=== PATIENT | male | born 1955 | race Caucasian/White ===

== ENCOUNTER → 2016-06-17 | Outpatient (CLI) | payer OTHER ==
[~2016-06-17] MED LIST: ALBUTEROL0.63 MG/3 IH; ATARAX-DPS25 MG PO; BACTRIM DS DPS1 TAB PO; CEPHALEXIN500 MG PO; CHANTIX1 MG PO; DIABETA5 MG PO; GLUCOPHAGE-DPS500 MG PO; K-TAB ER10 MEQ PO; LASIX80 MG PO; NORCO 5-325 TA1 EACH PO; PANTOPRAZOLE SO20 MG PO; PRILOSEC20 MG PO; SINEMET 25-2501 EACH PO; ZYRTEC10 MG PO
--- NOTE | ~2016-06-17 | ECH ---
Transthoracic Echocardiography Report (TTE) Demographics Patient Name PAOLA HYATT Date of Study 06/17/2016 Patient Number [id number] Visit Number [id number] Date of 1955 Room Number Accession Number [id number] Gender Male Age 61 year(s) Referring Geovani Finnegan MD Piecer Up [address] [facility] Physician Physician Interpreting Lisa Nice Zigzag Topstitcher Physician MD Supervising Ordering Physician Geovani Finnegan MD, MD/P Nurse Stress Director Of Corporate Strategy Conclusions Summary Technically good exam. The estimated left ventricular ejection fraction is 60-65%. The right atrium is mildly dilated. No significant valvular abnormalities. Procedure Type of Study TTE procedure:Echo Complete SF. Procedure Date Date: 06/17/2016 Start: 09:17 AM Technical Quality: Good visualization Indications:Bilateral lower extremity edema and Hypertension. Additional Indications:Fluid retention Appropriate Use Criteria: 9 Height: 66 inches Weight: 258 pounds BSA: 2.23 m Rhythm: NSR HR: 72 bpm BP: 120/68 mmHg M-Mode/2D Measurements LV Diastolic Dimension: 5.6 cm LV Systolic Dimension: 3.3 cm LV Septum Diastolic: 0.7 cm LV PW Diastolic: 0.8 cm AO Root Dimension: 2.7 cm Cardiac Output: 0.07 l/min LA Dimension: 3.9 cm Cardiac Index: 0.03 l/min*m RV Diastolic Dimension: 3.5 cm LA volume index: 24 ml/m LVOT: 2 cm LVOT VTI: 0.3 cm RV Base: 4 cm LV Stroke volume: 0.94 ml RV Mid: 2.6 cm LV Stroke volume index: 0.42 ml/m TAPSE: 2.8 cm TDI-S': 15 cm/s Doppler Measurements AV Peak Velocity: 1.9 m/s MV Peak E-Wave: 1 m/s AV Peak Gradient: 14.44 mmHg MV Peak A-Wave: 0.8 m/s AV Mean Gradient: 6.9 mmHg MV E/A Ratio: 1.25 LVOT Peak Velocity: 1.3 m/s MV P1/2t: 95 msec AV Area (Continuity):2.77 cm MV Deceleration Time: 329 msec TR Velocity:2.4 m/s MV Area (PHT): 2.32 cm TR Gradient:23.04 mmHg PV Peak Velocity: 1.5 m/s Estimated RAP:3 mmHg PV Peak Gradient: 9 mmHg Estimated RVSP: 26 mmHg Estimated PASP: 26.04 mmHg E' Septal Velocity: 0.1 m/s A' Septal Velocity: 0.9 m/s E' Lateral Velocity: 0.15 m/s A' Lateral Velocity: 0.9 m/s MV E/E' Ratio: 6.6 RA Area: 20 cm Findings Left Ventricle Normal left ventricle size and function. Diastolic assessment reveals normal relaxation. Right Ventricle Normal right ventricle structure and function. Left Atrium Normal left atrial size. Right Atrium The right atrium is mildly dilated. Mitral Valve Normal mitral valve structure and function. Mild mitral regurgitation by color Doppler. Aortic Valve Normal aortic valve structure and function. Tricuspid Valve Normal tricuspid valve structure and function. Trivial tricuspid regurgitation by color Doppler. Normal pulmonary pressures. Pulmonic Valve Normal pulmonic valve structure and function. Trivial pulmonic valve regurgitation by color Doppler. Pericardial Effusion No evidence of pericardial effusion. Miscellaneous Visualized portions of the aortic root and ascending aorta appear normal in size. Pleural Effusion No evidence of pleural effusion. Contractility Score LV regional wall motion:(0-Non visualized 1-Normal 2-Hypokinesis 3-Akinesis 4-Dyskinesis 5-Aneurysm) Signature
== END | disposition home or self-care (01) ==
LOC: RAD.S 05-24 14:30
DX: K74.60 Unspecified cirrhosis of liver (principal); M81.0 Age-related osteoporosis without current pathological fracture; M85.862 Other specified disorders of bone density and structure, left lower leg

== ENCOUNTER 2016-06-25 07:20 | Day surgery (SDC) | payer OTHER ==
[~2016-06-25] VITALS: Ht 167.6 cm; Wt 119.2 kg
--- NOTE | 2016-06-30 10:45 | OR ---
ADMIT: 06/25/2016 RM/LOC: [facility] MR#: [id number] [address] [id number] EDMAR PAOLA DARNELL [address] [place] [id number] Operative/Delivery Room Report SEX: M AGE: 61 : 1955 SURGERY DATE: 06/25/2016 SURGEON: Manuel Park MD PREOPERATIVE DIAGNOSES: History of colon polyps as well as history of gastritis, question esophageal varices from his liver disease. POSTOPERATIVE DIAGNOSES: 1. No evidence of esophageal varices. Normal-appearing upper endoscopy. 2. Normal colonoscopy. PROCEDURES PERFORMED: 1. EGD with biopsies. 2. Colonoscopy. ANESTHESIA: Sedation. ESTIMATED BLOOD LOSS: None. DESCRIPTION OF PROCEDURE: After appropriate informed consent was obtained, the patient was brought to the endoscopy suite. IV sedation was provided. A well-lubricated endoscope was introduced and passed down the esophagus. The esophageal mucosa appeared normal. There was no evidence of any varices, no esophagitis. Really not anything for hiatal hernia. The scope was advanced in the stomach. The gastric mucosa appeared normal throughout. The pylorus was intubated. Duodenal bulb, second and third portion of duodenum appeared normal. The scope was pulled back into the stomach, retroflexed, revealing no hiatal hernia below. No gastric varices either. Several biopsies were taken of the antrum. The stomach was then deflated, the scope withdrawn. I then proceeded with colonoscopy. Rectal exam revealed some mild hemorrhoids, no rectal mass. The scope was introduced, passed through the entire length of colon. He had no polyps or masses throughout. The ileocecal valve and appendicial orifice appeared normal. The scope was then slowly and carefully withdrawn. Again, the colonic mucosa appeared normal on the way out. The scope was retroflexed in rectum revealing mild internal hemorrhoids, no rectal mass. The patient tolerated the procedure well and was taken to the recovery room in stable condition. Manuel Park MD/ delvis JOB #: [id number] CC: Manuel Park MD, Attending Physician Sanjana Dai MD, Family Physician
== END 2016-06-25 11:30 | disposition home or self-care (01) ==
LOC: SSS 07:20
PROC: 0DB68ZX Excision of Stomach, Via Natural or Artificial Opening Endoscopic, Diagnostic (ICD-10-PCS; principal; 2016-06-25)
PROC: 0DJD8ZZ Inspection of Lower Intestinal Tract, Via Natural or Artificial Opening Endoscopic (ICD-10-PCS; principal; 2016-06-25)
DX: K29.50 Unspecified chronic gastritis without bleeding (principal); K64.8 Other hemorrhoids; F17.210 Nicotine dependence, cigarettes, uncomplicated; J44.9 Chronic obstructive pulmonary disease, unspecified; E11.9 Type 2 diabetes mellitus without complications; Z79.899 Other long term (current) drug therapy; Z88.6 Allergy status to analgesic agent; Z86.73 Personal history of transient ischemic attack (TIA), and cerebral infarction without residual deficits; Z86.010 Personal history of colon polyps

== ENCOUNTER → 2016-07-23 | Outpatient (CLI) | payer OTHER | END | disposition home or self-care (01) | LOC: RAD.S 10:00 | DX: J18.9 Pneumonia, unspecified organism (principal); I50.9 Heart failure, unspecified ==

== ENCOUNTER → 2016-08-06 | Outpatient (CLI) | payer OTHER | END | disposition home or self-care (01) | LOC: RAD.S 08:28 → PTH.S 08-12 08:00 → RAD.S 08-12 08:00 | PROC: 0W9B3ZZ Drainage of Left Pleural Cavity, Percutaneous Approach (ICD-10-PCS; principal; 2016-08-06) | DX: J90 Pleural effusion, not elsewhere classified (principal) ==

== ENCOUNTER → 2016-08-24 | Outpatient (CLI) | payer OTHER | END | disposition home or self-care (01) | LOC: PTH.S 09:45 | DX: K74.60 Unspecified cirrhosis of liver (principal) ==

== ENCOUNTER → 2016-09-06 | Outpatient (CLI) | payer OTHER | END | disposition home or self-care (01) | LOC: RAD.S 08-24 14:18 | PROC: 0W9B3ZZ Drainage of Left Pleural Cavity, Percutaneous Approach (ICD-10-PCS; principal; 2016-09-06) | DX: J90 Pleural effusion, not elsewhere classified (principal); J98.11 Atelectasis ==